=== PATIENT | male | born 1985 | race Asian ===

== ENCOUNTER 2021-08-23 13:11 | Outpatient (CLI) | payer OTHER | END 2021-08-23 19:14 | disposition home or self-care (01) | LOC: US 13:11 | PROVIDERS: ATTEND Nurse Practitioner Family | DX: I47.1 Supraventricular tachycardia (principal); I50.1 Left ventricular failure, unspecified; R00.8 Other abnormalities of heart beat; I34.0 Nonrheumatic mitral (valve) insufficiency ==